=== PATIENT | female | born 1970 | race Caucasian/White ===

== ENCOUNTER → 2016-06-20 | Outpatient (CLI) | payer OTHER ==
[~2016-06-20] MED LIST: AMIT25TA9 PO; FESO8TAB PO; HYDR25TA4 PO; LSN5 PO; NITR1CAP32 PO; PANT1TAB48 PO; RANI150T3 PO; SIMV1POW PO
--- NOTE | 2016-06-20 15:22 | MAMMOGRAPHY REPORT ---
UNILATERAL RIGHT DIGITAL DIAGNOSTIC MAMMOGRAM TOMOSYNTHESIS WITH CAD AND TARGETED RIGHT ULTRASOUND: 06/20/2016 CLINICAL HISTORY: The patient reports right axillary swelling and associated tenderness for approxim ately one month. TECHNIQUE: Breast tomosynthesis in addition to standard 2D mammography was performed. Current study was also evaluated with a Computer Aided Detection (CAD) system. Right CC and MLO 2-D and tomosynt hesis images were obtained. COMPARISON: Comparison is made to exams dated: 01/26/2016 mammogram, 01/13/2015 mammogram, 03/08/2013 mammogram, 01/24/2015 mammogram, and 01/24/2015 ultrasound - [facility]. BREAST COMPOSITION: There are scattered areas of fibroglandular density in the right breast. FINDINGS: There are no suspicious masses, calcifications, or areas of architectural distortion note d in the right breast. There has been no significant interval change compared to prior exams. No s uspicious abnormalities are seen within the partially visualized axilla mammographically. Targeted ultrasound was performed of the right axilla in the region of swelling and associated tende rness. Sonographically normal fatty tissue is seen in this region, without evidence of a mass or ot her suspicious sonographic abnormality. Incidentally noted is a morphologically normal right axilla ry lymph node measuring 1.7 cm. IMPRESSION: ACR BI-RADS CATEGORY 2: BENIGN, TARGETED ULTRASOUND ACR BI-RADS CATEGORY 2: BENIGN No suspicious mammographic or sonographic abnormality at the site of right axillary swelling and ten derness. There is no mammographic or targeted sonographic evidence of malignancy. Recommend clinic al follow-up, and recommend routine bilateral screening mammograms which are due December 2016. The patient has been verbally notified of the results. Approximately 10% of breast cancers are not detected with mammography. A negative mammographic repor t should not delay biopsy if a clinically suggestive mass is present. Yuly Greenberg M.D. ah/:06/20/2016 13:49:42 [employer]indery Worker: Yana BOYER)(M), [facility] letter sent: Normal 1/2 BI-RADS Code: ACR BI-RADS Category 2: Benign Ultrasound BI-RADS: ACR BI-RADS Category 2: Benign
== END | disposition home or self-care (01) ==
LOC: C.MAMM 13:18
PROVIDERS: ATTEND Obstetrics & Gynecology
DX: N64.89 Other specified disorders of breast (principal)

== ENCOUNTER → 2016-07-08 | Outpatient (CLI) | payer OTHER ==
--- NOTE | 2016-07-08 11:43 | DIAGNOSTIC IMAGING REPORT ---
CT SCAN OF THE PARANASAL SINUSES CLINICAL HISTORY: Chronic sinusitis. COMPARISON STUDY: MRI of the brain dated 12/28/2013. TECHNIQUE: High-resolution CT scan of the paranasal sinuses is performed. Images are reviewed in the axial, sagittal, and coronal planes. IV contrast was not administered for this examination. CT DOSE: 273.21 mGycm FINDINGS: Maxillary antra: Trace mucosal thickening is seen bilaterally. Anterior ethmoid sinuses: Clear. Posterior ethmoid sinuses: Clear. Sphenoid sinuses: Trace mucosal thickening is noted on the right. Clear on the left. Frontal sinuses: Clear. Ostiomeatal complexes: Patent bilaterally. Frontoethmoidal and sphenoethmoidal recesses: Patent bilaterally. Carotid arteries: The carotid arteries are protuberant but covered and without septal attachments. Ethmoid roofs: The ethmoid roofs are symmetric. Nasal turbinates: Normal in appearance. Nasal septum: There is mild rightward deviation of the bony nasal septum. Optic nerves: Covered. Orbits: The bony orbits are intact. Orbital contents are normal in appearance. Calvarium: The imaged calvarium is normal in appearance. Mild degenerative change is noted at the temporomandibular joints. Mastoid air cells: Well pneumatized. Brain parenchyma: Partially visualized brain parenchyma is within normal limits. IMPRESSION: No significant paranasal sinus disease. See above. Electronically signed by: Dav Bragg M.D. 07/08/2016 11:42 AM Dictated Date/Time: 07/08/2016 11:39 AM
--- NOTE | 2016-07-08 12:08 | DIAGNOSTIC IMAGING REPORT ---
CHEST CT WITHOUT CONTRAST CT DOSE: 670.78 mGycm HISTORY: Tachycardia. Right axilla swelling. TECHNIQUE: Multiaxial CT images of the chest were performed without contrast. COMPARISON: Chest CT 01/18/2016. FINDINGS: The central airways are patent. No pleural effusions. No pneumothorax. Stable 5 mm nodule within the left lower lobe on image 225. Therefore, this is likely benign. Stable 2 mm nodule within the right lung apex on image 125. This is also likely benign. No new focal lung consolidations. No axillary masses or lymphadenopathy. Stable 2.4 cm hypodense lesion within the right hepatic lobe. Cholecystectomy. Stable 1.2 cm benign right adrenal adenoma. No mediastinal or hilar lymphadenopathy. The thoracic aorta is normal in caliber. IMPRESSION: No significant change from the prior study. No acute process within the chest. Electronically signed by: Edgar Saeed M.D. 07/08/2016 12:06 PM Dictated Date/Time: 07/08/2016 11:46 AM
== END | disposition home or self-care (01) ==
LOC: C.CTS 10:38
PROVIDERS: ATTEND Internal Medicine
DX: J32.9 Chronic sinusitis, unspecified (principal); R00.0 Tachycardia, unspecified; R22.30 Localized swelling, mass and lump, unspecified upper limb

== ENCOUNTER → 2016-08-06 | Outpatient (CLI) | payer OTHER ==
[~2016-08-06] MED LIST changes: +GADAVIST IV PRN
--- NOTE | 2016-08-06 09:16 | DIAGNOSTIC IMAGING REPORT ---
MRI OF THE BRAIN COMBO CLINICAL HISTORY: Headache. COMPARISON STUDY: MRI of the brain dated 12/28/2013 and 09/07/2009. TECHNIQUE: MRI of the brain was performed utilizing various T1 and T2-weighted sequences in the axial, sagittal, and coronal planes. Contrast-enhanced sequences were acquired following the administration of 10 cc of Gadavist. FINDINGS: Brain parenchyma: There is a 3.5 mm focus of T1 hyperintense signal in the left parietal-occipital region on axial image #12. There is faint stranding susceptibility artifact seen on the coronal FLAIR sequence, and the film at the venous anomaly is suggested in this region on the postcontrast images. This likely represents a tiny cavernoma with trace hemorrhage. There is no associated mass effect. No additional foci of hemorrhage are identified. There is no restricted diffusion to suggest acute ischemia. No enhancing mass lesion is seen on the postcontrast images. Coon-white matter differentiation is preserved. No extra-axial fluid collection is seen. The cerebellar tonsils are normal in configuration. Ventricles, sulci, and cisterns: Normal in configuration. Pituitary and sella: Unremarkable. Intracranial vasculature: Normal flow voids are maintained at the skull base. Orbits: The bony orbits are grossly intact. Orbital contents are normal in appearance. Sinuses and mastoids: Clear. Calvarium: Unremarkable. Cervical cord: Partially visualized cervical spinal cord is normal in morphology and signal intensity. IMPRESSION: 1. 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 The punctate focus of hemorrhage is new from the 2014 examination. A precautionary six-month follow-up MRI is recommended for reassessment. 2. No additional abnormality is seen. The brain parenchyma is otherwise normal in appearance. Electronically signed by: Dav Bragg M.D. 08/06/2016 9:14 AM Dictated Date/Time: 08/06/2016 9:02 AM
== END | disposition home or self-care (01) ==
LOC: C.MRI 07:56
PROVIDERS: ATTEND Psychiatry & Neurology Neurology
DX: R94.02 Abnormal brain scan (principal); R51 Headache

== ENCOUNTER → 2017-01-27 | Outpatient (CLI) | payer OTHER ==
[~2017-01-27] MED LIST changes: -GADAVIST IV PRN
== END | disposition home or self-care (01) ==
LOC: C.PAPS 10:26
PROVIDERS: ATTEND Obstetrics & Gynecology
DX: Z12.72 Encounter for screening for malignant neoplasm of vagina (principal); Z90.710 Acquired absence of both cervix and uterus

== ENCOUNTER → 2017-01-27 | Outpatient (CLI) | payer OTHER ==
--- NOTE | 2017-01-28 12:21 | MAMMOGRAPHY REPORT ---
BILATERAL DIGITAL SCREENING MAMMOGRAM TOMOSYNTHESIS WITH CAD: 01/27/2017 CLINICAL HISTORY: Routine screening. Patient reports persistent axillary swelling and tenderness sin ce her prior diagnostic appointment dated 06/20/2016. TECHNIQUE: Breast tomosynthesis in addition to standard 2D mammography was performed. Current study was also evaluated with a Computer Aided Detection (CAD) system. COMPARISON: Comparison is made to exams dated: 06/20/2016 ultrasound, 06/20/2016 mammogram, 01/26/2016 mammogram, 01/24/2015 mammogram, 01/24/2015 ultrasound, and 01/13/2015 mammogram - [facility]. BREAST COMPOSITION: There are scattered areas of fibroglandular density in both breasts. FINDINGS: There is a 10 mm asymmetry in the medial posterior left breast (CC tomosynthesis slice 21/ 76), that is increasingly prominent comparing to prior mammograms. Although this could represent nor mal fibroglandular tissue, additional spot compression tomosynthesis views and possibly ultrasound ar e recommended. No other suspicious mass, architectural distortion or cluster of microcalcifications is seen bilatera lly. IMPRESSION: ACR BI-RADS CATEGORY 0: INCOMPLETE EVALUATION: NEED ADDITIONAL IMAGING EVALUATION The 10 mm asymmetry in the medial, posterior left breast needs additional evaluation. The patient will be called to schedule an appointment. Approximately 10% of breast cancers are not detected with mammography. A negative mammographic report should not delay biopsy if a clinically suggestive mass is present. Kathleen Lee M.D. ay/:01/27/2017 16:02:45 Broadcast Supervisor: Tonie Camarillo, [facility] letter sent: Addl Imaging 0 BI-RADS Code: ACR BI-RADS Category 0: Incomplete Evaluation: Need Additional Imaging Evaluation
== END | disposition home or self-care (01) ==
LOC: C.MAMM 14:17
PROVIDERS: ATTEND Obstetrics & Gynecology
DX: Z12.31 Encounter for screening mammogram for malignant neoplasm of breast (principal); N64.89 Other specified disorders of breast

== ENCOUNTER → 2017-02-03 | Outpatient (CLI) | payer OTHER ==
--- NOTE | 2017-02-03 14:16 | MAMMOGRAPHY REPORT ---
UNILATERAL LEFT DIGITAL DIAGNOSTIC MAMMOGRAM TOMOSYNTHESIS AND TARGETED BILATERAL ULTRASOUND: 02/04/20 CLINICAL HISTORY: 46-year-old woman called back from screening mammography for a 10 mm asymmetry in t he medial posterior left breast, best seen on the CC view. Patient also reports persistent pain and swelling in the right axilla. TECHNIQUE: Spot compression left CC and MLO 2-D and tomosynthesis images were obtained. COMPARISON: Comparison is made to exams dated: 01/27/2017 mammogram, 06/20/2016 ultrasound, 06/20/2016 mammogram, 01/26/2016 mammogram, 01/24/2015 mammogram, and 01/24/2015 ultrasound - [facility]. BREAST COMPOSITION: There are scattered areas of fibroglandular density in the left breast. FINDINGS: The spot compression 2-D and tomosynthesis views of the left breast demonstrate a persiste nt 5.7 x 10 mm asymmetry in the CC projection, thought to project inferiorly based on the MLO project ion on the MLO view in the inferior middle one third of the breast, there is a second 5 mm asymmetry, for which a definite correlate is not identified on the cc views. No associated calcification or de finite architectural distortion. When comparing back to prior available mammograms, the asymmetries were not definitely identified and are indeterminate. Further evaluation with ultrasound was perform ed. Targeted ultrasound was performed in the medial left breast and also in the right axilla in the area of continued pain. In the 7:00 left breast, 6 cm from the nipple, there is a subtle isoechoic lesion versus normal tissue measuring 5.3 x 3.2 mm in the anti-radial plane, that does not definitely persi st in the radial plane. No significant increased vascularity. Although this may correlate with the mammographic finding, it is better seen mammographically and therefore a stereotactic (tomosynthesis) guided biopsy is recommended for definitive characterization. Given the far posterior location, if this area is not amenable to tomosynthesis guided biopsy, could perform a limited localization and ul trasound guided core biopsy in the 7:00 left breast. Additional sonographic evaluation performed in the right axilla in the area of pain reported by the p atient demonstrates no suspicious solid or cystic mass or suspicious lymphadenopathy. A morphologica lly normal lymph node is identified. IMPRESSION: ACR BI-RADS CATEGORY 4: SUSPICIOUS, TARGETED ULTRASOUND ACR BI-RADS CATEGORY 4: SUSPICIO US 1. Stereotactic (tomosynthesis) guided left breast biopsy is recommended for a 10 mm asymmetry in th e medial posterior breast, without definitive sonographic correlate. 2. A second 5 mm nodular asymmetry is seen on the spot compression MLO view, without evidence of son ographic correlate. Although this second asymmetry could represent normal tissue, further management will be made once pathology results are available from stereotactic biopsy. 3. No suspicious targeted sonographic abnormality in the right axilla to explain the continued pain described by the patient. Clinical follow-up is again recommended. These results and recommendations were discussed with the patient at the time of the exam. She tenta tively scheduled the left breast biopsy prior to leaving our department. Approximately 10% of breast cancers are not detected with mammography. A negative mammographic report should not delay biopsy if a clinically suggestive mass is present. Kathleen Lee M.D. ay/:02/03/2017 12:43:45 Garment Manufacturer: Tonie Camarillo, [facility] letter sent: Abnormal 4/5 BI-RADS Code: ACR BI-RADS Category 4: Suspicious Ultrasound BI-RADS: ACR BI-RADS Category 4: Suspici ous
== END | disposition home or self-care (01) ==
LOC: C.MAMM 11:02
PROVIDERS: ATTEND Obstetrics & Gynecology
DX: N64.9 Disorder of breast, unspecified (principal)

== ENCOUNTER → 2017-02-12 | Outpatient (CLI) | payer OTHER ==
--- NOTE | 2017-02-12 13:24 | Discharge Instructions ---
Discharge Instructions Procedure Procedure Date: Feb 12, 2017. Reason for visit: Left Asymmetry/Poss Core Bx. Discharge Discharge Date: Feb 12, 2017. Discharge Diagnosis: post left breast stereotactic (tomosynthesis) guided biopsy Instructions Activity Recommendations: Additional Limitations (see below) Return to School/Work: no limitations Recommended Home Diet: No Limitations Provider Instructions: ACTIVITY RECOMMENDATIONS: * No lifting, pushing, pulling or exercising the affected side for three days. RETURN TO SCHOOL/WORK: * You may return to work/school after the procedure, but do not perform any strenuous activities for 24 to 48 hours. MEDICATIONS: * Tylenol (two 325 mg) every four to six hours if needed for mild pain (if not allergic to Tylenol). DIET: * Resume previous diet. SPECIAL CARE INSTRUCTIONS: * Keep biopsy site dry for 24 hours. May shower after 24 hours, but do not soak (bathe) incision. * May remove Tegaderm (plastic patch) tomorrow AFTER showering. * Leave the steri-strips on for one week. Allow the steri-strips to fall off by themselves. If not off after one week, you may remove them. You may place a Bandaid crosswise over the strips, if desired. * Apply ice 10 minutes on and 10 minutes off as needed. * Wear a bra at bedtime to sleep more comfortably for 2-3 days. * Your referring physician should have the results after approximately 5 to 7 business days. * Call for unusual bleeding, fever, drainage, etc or if you have any questions call [phone] during normal business hours or after hours call Dr Lee, . FOLLOW UP VISIT: Follow-up with Referring Physician as scheduled. Allergies Coded Allergies: BEE STING (Verified Allergy, Severe, HIVES, SOB, 12/12/14) Penicillins (Verified Allergy, Intermediate, 12/12/14) HIVES-PT HAS HAD KEFZOL WITHOUT RXN. Sulfamethoxazole w/Trimethoprim (Verified Allergy, Intermediate, hives, ) Hydromorphone (Verified Allergy, Mild, RASH, 12/12/14) Cephalosporins (Verified Allergy, Unknown, 12/12/14) Chocolate (Verified Allergy, Unknown, 12/12/14) Iodinated Contrast Media (Unverified Allergy, Unknown, swelling, 12/12/14) "RASH, SOB" WITH CT DYE Carolina Lema Recommendations: Call your doctor if: * Temperature above 101 degrees * Pain not relieved by pain medicine ordered * There is increased drainage or redness from any incision * You have any unanswered questions or concerns. Your Doctors Instructions noted above were prepared by provider Kathleen Lee. Patient Signature Section: Patient Instructions Signature Page Airam Foss Patient (or Guardian) Signature/Date: I have read and understand the instructions given to me by my caregivers. Caregiver/RN/Doctor Signature/Date: The above-named patient and/or guardian has received patient instructions on this date. + Original Patient Signature Page (only) stays with chart. Please make copy for patient.
--- NOTE | 2017-02-13 07:44 | MAMMOGRAPHY REPORT ---
STEREOTACTIC GUIDED BIOPSY LEFT BREAST: 02/12/2017 CLINICAL HISTORY: Increasingly prominent focal asymmetry in the medial posterior left breast. Derrick tong presents for stereotactic (tomosynthesis) guided biopsy. COMPARISON: Comparison is made to exams dated: 02/03/2017 mammogram, 02/03/2017 ultrasound, 01/27/2017 mammogram, 06/20/2016 ultrasound, 06/20/2016 mammogram, and 01/26/2016 mammogram - [facility]. PATIENT CONSENT: After explaining the risks, benefits and alternatives of the procedure to the derrick tong, informed consent was obtained both verbally and in writing. Specific risks include: Bleeding, inf ection, puncture of adjacent structure, pain, nontarget biopsy, sampling error, metal allergy and med ication reaction. PROCEDURE DESCRIPTION: A time-out was performed and the left breast was confirmed as the site of biop sy. The patient was placed prone on the stereotactic biopsy table and the breast was placed in CC fro m below compression. A phlebotomy lab assistant tomosynthesis image was obtained that demonstrated the focal asymmetry i n question. It is amenable to sterotactic biopsy, and was targeted utilizing the coordinates obtaine d by the computer. A prefire tomosynthesis view was also obtained which demonstrates alignment of th e needle tip with the focal asymmetry in question. Then, the skin of the inferior left breast was pr epped with Betadine. 1% Lidocaine with and without epinipherine was administered as local anesthesia. A small skin incision was made. Through the incision, the needle was inserted to the depth determin ed by the computer. 8 samples were obtained using a [employer] 9-gauge vacuum-assisted biopsy device . A dumbbell-shaped metallic marker was placed at the biopsy site and a postprocedure tomosynthesis view was obtained which demonstrates adequate sampling of the focal asymmetry and a small air pocket denoting the biopsy cavity. There was no immediate complication. Hemostasis was achieved after sever al minutes of manual compression. The samples were sent to pathology in a single appropriately label ed container. Postprocedure CC and ML tomosynthesis images of the left breast were obtained. There is a new double -shaped biopsy marker clip in the lower inner posterior left breast, within the focal asymmetry in qu estion. No significant hematoma is identified. IMPRESSION: STEREOTACTIC GUIDED BIOPSY Status post stereotactic tomosynthesis guided biopsy of a focal asymmetry in the lower inner posterio r left breast, with biopsy marker placed at the site. The patient will receive notification of the biopsy results from her referring physician. Kathleen Lee M.D. ay/:02/12/2017 13:40:15 Bankruptcy Manager: Caren BOYER)(T[place]), [facility]
--- NOTE | 2017-02-13 07:49 | MAMMOGRAPHY REPORT ---
UNILATERAL LEFT DIGITAL DIAGNOSTIC MAMMOGRAM TOMOSYNTHESIS: 02/12/2017 CLINICAL HISTORY: Status post tomosynthesis guided biopsy of a focal asymmetry in the medial posterio r left breast. Please refer to the report from left breast stereotactic (tomosynthesis) guided biopsy performed at t he same time for full detail. IMPRESSION: POST PROCEDURE IMAGING FOR MARKER PLACEMENT Please refer to the report from left breast stereotactic (tomosynthesis) guided biopsy performed at t he same time for full detail. Approximately 10% of breast cancers are not detected with mammography. A negative mammographic report should not delay biopsy if a clinically suggestive mass is present. Kathleen Lee M.D. ay/:02/12/2017 13:25:20 [place] Et[employer] Developer: Caren CALDERON(R)(M), [facility] BI-RADS Code: Post Procedure Imaging For Marker Placement
== END | disposition home or self-care (01) ==
LOC: C.MAMM 12:15
PROVIDERS: ATTEND Obstetrics & Gynecology
DX: R92.8 Other abnormal and inconclusive findings on diagnostic imaging of breast (principal); N64.89 Other specified disorders of breast